=== PATIENT | male | born 1960 | race Native Hawaiian/Other Pacific Islander ===

== ENCOUNTER 2019-03-20 08:11 | Day surgery (SDC) | payer OTHER ==
[2019-03-18 16:08] VITALS: BMI 22.4
[~2019-03-20 08:11] MED LIST: LACTATED RINGERS 1,000 ML IV SCH; LIDOCAINE 1% 20 ML VIAL (10MG/ML) FOR IV START INTRADERMA PRN
[2019-03-20] MEDS ORDERED: LACTATED RINGERS 1,000 ML IV ONE (08:35)
[2019-03-20] MEDS ORDERED: LIDOCAINE 1% 20 ML VIAL (10MG/ML) FOR IV START INTRADERMA ONE (08:35)
[2019-03-20 08:38] VITALS: TEMP 97.5
--- NOTE | 2019-03-20 09:03 | P.GSHP ---
History of Present Illness H&P Date: 03/20/19 Chief Complaint: Colon polyp Patient on our service. 1.5 years ago the patient had a second colonoscopy to evaluate a hepatic flexure polyp. Residual tissue was seen at that time and removed in one piece using the snare technique. Patient doing well otherwise. Past Medical History Past Medical History: Hyperlipidemia Additional Past Medical History / Comment(s): hx of colon polyps History of Any Multi-Drug Resistant Organisms: None Reported Past Surgical History: Orthopedic Surgery Additional Past Surgical History / Comment(s): 2004 & 02/2015 right knee sx, right trigger finger, 1977 broken jaw, colonoscopy Past Anesthesia/Blood Transfusion Reactions: No Reported Reaction Smoking Status: Never smoker - Past Family History Mother Family Medical History: Chest Pain / Angina, Coronary Artery Disease (CAD), Hypertension, Myocardial Infarction ([place]) Father Family Medical History: Chest Pain / Angina, Coronary Artery Disease (CAD), Hypertension, Myocardial Infarction ([place]) Medications and Allergies Home Medications Medication Instructions Recorded Confirmed Type Hydrocodone/Acetaminophen 1 tab PO Q6HR PRN 01/11/16 03/20/19 History [Hydrocodon-Acetaminoph 7.5-325] Ibuprofen [Motrin] 800 mg PO QID PRN 01/11/16 03/18/19 History Pravastatin Sodium [Pravachol] 10 mg PO HS 01/11/16 03/20/19 History Allergies Allergy/AdvReac Type Severity Reaction Status Date / Time No Known Allergies Allergy Verified 03/20/19 08:49 Surgical - Exam Vital Signs Temp Pulse Resp BP Pulse Ox 97.5 F L 78 16 154/81 98 03/20/19 08:36 03/20/19 08:36 03/20/19 08:36 03/20/19 08:36 03/20/19 08:36 Physical exam: General: Well-developed, well-nourished HEENT: Normocephalic, sclerae nonicteric Abdomen: Nontender, nondistended Extremities: No edema Neuro: Alert and oriented Assessment and Plan (1) Colon polyp Narrative/Plan: Will proceed with follow-up colonoscopy at this time. Current Visit: Yes Status: Acute Code(s): K63.5 - POLYP OF COLON SNOMED Code(s): 33357401
[2019-03-20] MEDS ORDERED: PROPOFOL 10 MG/ML 20 ML VIAL IV ONE (09:09)
--- NOTE | 2019-03-20 09:26 | P.PCN ---
Date of Procedure: 03/20/19 Procedure(s) Performed: PREOPERATIVE DIAGNOSIS: History of hepatic flexure polyp POSTOPERATIVE DIAGNOSIS: Scar tissue remains at site of previous hepatic flexure polyp PROCEDURE: Colonoscopy with biopsy ANESTHESIA: MAC SURGEON: Adi Horvath M.D. SPECIMENS: Hepatic flexure polyp ENDOSCOPIC PROCEDURE: The patient was placed on the endoscopy table in the left decubitus position. The Olympus colonoscope was inserted into the anus and passed under direct visualization to the base of the cecum. The appendiceal orifice was visualized. From that point the scope was slowly withdrawn inspecting all surfaces carefully. There were no neoplastic inflammatory or polypoid lesions throughout the cecum or ascending colon. At the hepatic flexure the previously identified polyp site was identified. There was a scar there present. It was difficult to say whether there was residual adenomatous tissue. Several biopsies of that area took place using the cold biopsy forceps. This area measured approximately 1.5 x 0.5 cm. The remainder of the transverse descending sigmoid and rectum appeared normal. There was no visible diverticulosis. Digital rectal examination was normal. The patient was taken to the recovery room in stable condition per anesthesia guidelines. RECOMMENDATIONS: Await biopsy results. If residual polypoid tissue present will require short-term follow-up.
[2019-03-20 09:58] VITALS: BP 107/75; PULSE 65; RESP 18
== END 2019-03-20 10:05 | disposition home or self-care (01) ==
LOC: ORWHC2ENDO 08:11
PROVIDERS: ATTEND Surgery
DX: Z09 Encounter for follow-up examination after completed treatment for conditions other than malignant neoplasm (principal); Z86.010 Personal history of colon polyps; E78.5 Hyperlipidemia, unspecified; Z79.899 Other long term (current) drug therapy
CPT/HCPCS: 88305; 45380; J2704

== ENCOUNTER 2019-12-21 08:15 | Day surgery (SDC) | payer OTHER ==
[2019-12-17 12:11] VITALS: BMI 22.4
[~2019-12-21 08:15] MED LIST changes: +DEXAMETHASONE SOD PHOSPHATE 10 MG/ML 1 ML VIAL IV ONE; +HEPARIN SODIUM,PORCINE 5,000 UNIT/ML 1 ML VIAL SQ ONE; +HYDROmorphone 0.5 MG/0.5 ML SYRINGE IVP PRN; -LIDOCAINE 1% 20 ML VIAL (10MG/ML) FOR IV START INTRADERMA PRN; +MIDAZOLAM 2 MG/2 ML VIAL IV PRN; +ONDANSETRON 4 MG/2 ML VIAL IVP ONE; +Pre Op ABX Message 1 EACH MISC MISCELLANE ONE; +SCOPOLAMINE 1.5MG/72HR PATCH TRANSDERM ONE
[2019-12-21 08:36] VITALS: RESP 16; TEMP 97.3
[2019-12-21] MEDS ORDERED: LIDOCAINE 1% (10MG/ML) FOR IV START INTRADERMA ONE (08:37)
--- NOTE | 2019-12-21 08:38 | P.GSHP ---
History of Present Illness H&P Date: 12/21/19 Chief Complaint: Right posterior shoulder sebaceous cyst This a 59-year-old male who presents today for excision of a sebaceous cyst right posterior shoulder. Patient developed a 5 cm mass located of his right posterior shoulder. Past Medical History Past Medical History: Hyperlipidemia Additional Past Medical History / Comment(s): hx of colon polyps, hx back pain History of Any Multi-Drug Resistant Organisms: None Reported Past Surgical History: Orthopedic Surgery Additional Past Surgical History / Comment(s): 2004 & 02/2015 right knee sx, right trigger finger, 1977 broken jaw, colonoscopy, epidural pain injections to back Past Anesthesia/Blood Transfusion Reactions: No Reported Reaction Smoking Status: Never smoker - Past Family History Mother Family Medical History: Chest Pain / Angina, Coronary Artery Disease (CAD), Hypertension, Myocardial Infarction ([place]) Father Family Medical History: Chest Pain / Angina, Coronary Artery Disease (CAD), Hypertension, Myocardial Infarction ([place]) Medications and Allergies Home Medications Medication Instructions Recorded Confirmed Type Hydrocodone/Acetaminophen 1 tab PO Q6HR PRN 01/11/16 12/21/19 History [Hydrocodon-Acetaminoph 7.5-325] Ibuprofen [Motrin] 800 mg PO QID PRN 01/11/16 12/21/19 History Pravastatin Sodium [Pravachol] 10 mg PO HS 01/11/16 12/21/19 History Allergies Allergy/AdvReac Type Severity Reaction Status Date / Time No Known Allergies Allergy Verified 12/21/19 08:33 Surgical - Exam Vital Signs Temp Pulse Resp BP Pulse Ox 97.3 F L 68 16 144/63 99 12/21/19 08:34 12/21/19 08:34 12/21/19 08:34 12/21/19 08:34 12/21/19 08:34 - General well developed, well nourished, no distress - Eyes PERRL - ENT normal pinna - Respiratory normal expansion - Cardiovascular Rhythm: regular - Abdomen Abdomen: soft, non tender - Integumentary 5 cm mass over left posterior shoulder Assessment and Plan Assessment: Right posterior shoulder sebaceous cyst. We'll perform excision.
[2019-12-21] MEDS ORDERED: MIDAZOLAM 2 MG/2 ML VIAL ONE (08:49)
[2019-12-21] MEDS ORDERED: LIDOCAINE 1% INJ 10MG/ML (20 ML MDV) ONE (08:49)
[2019-12-21] MEDS ORDERED: fentaNYL (PF) 50 MCG/ML 2 ML AMP ONE (08:49)
[2019-12-21] MEDS ORDERED: PROPOFOL 10 MG/ML 20 ML VIAL IV ONE (08:49)
[2019-12-21] MEDS ORDERED: BUPIVACAINE (PF) 0.25% 30 ML VIAL SQ ONE (09:03)
[2019-12-21] MEDS ORDERED: SODIUM CHLORIDE 0.9% 50 ML with ceFAZolin 2,000 MG IV ONE ×2 (09:05)
[2019-12-21 10:04] VITALS: BP 121/70; PULSE 61
--- NOTE | 2020-01-11 15:14 | P.OP ---
Date of Procedure: 12/21/19 Preoperative Diagnosis: Sebaceous Cyst right posterior shoulder Postoperative Diagnosis: Sebaceous cyst right posterior shoulder Procedure(s) Performed: Excision of sebaceous cyst of right posterior shoulder Anesthesia: DONA Surgeon: Abhishek Miller Pathology: other (Sebaceous cyst) Condition: stable Disposition: PACU Description of Procedure: The patient's placed the operative table in the lateral position and his right shoulder was prepped in usual fashion. The skin was then 1% local Xylocaine. Using a 15 blade skin incised and using blunt and sharp dissection with cautery the sebaceous cyst excised. The skin was then closed with 3-0 nylon suture. Patient top she will was sent to recovery in stable condition.
== END 2019-12-21 10:30 | disposition home or self-care (01) ==
LOC: OR 08:15
PROVIDERS: ATTEND Surgery
DX: L72.0 Epidermal cyst (principal); E78.5 Hyperlipidemia, unspecified; Z86.010 Personal history of colon polyps; Z79.899 Other long term (current) drug therapy; Z98.890 Other specified postprocedural states; Z82.49 Family history of ischemic heart disease and other diseases of the circulatory system
CPT/HCPCS: 88304; 11406; J2250; J1644; J1100; J2405; J0690; J2001; J3010; J2704

== ENCOUNTER 2021-02-10 07:32 | Day surgery (SDC) | payer OTHER ==
[2021-02-08 09:58] VITALS: BMI 21.6
[~2021-02-10 07:32] MED LIST changes: -DEXAMETHASONE SOD PHOSPHATE 10 MG/ML 1 ML VIAL IV ONE; -HEPARIN SODIUM,PORCINE 5,000 UNIT/ML 1 ML VIAL SQ ONE; -HYDROmorphone 0.5 MG/0.5 ML SYRINGE IVP PRN; -MIDAZOLAM 2 MG/2 ML VIAL IV PRN; -ONDANSETRON 4 MG/2 ML VIAL IVP ONE; -Pre Op ABX Message 1 EACH MISC MISCELLANE ONE; -SCOPOLAMINE 1.5MG/72HR PATCH TRANSDERM ONE
[2021-02-10 08:23] VITALS: RESP 16; TEMP 97.8
[2021-02-10] MEDS ORDERED: PROPOFOL 10 MG/ML 20 ML VIAL IV ONE (08:53)
--- NOTE | 2021-02-10 08:56 | P.GSHP ---
History of Present Illness H&P Date: 02/10/21 Chief Complaint: Anemia Is a 60-year-old male being worked up for anemia. Patient is today for colonoscopy. He denies any obvious rectal bleeding. Past Medical History Past Medical History: Hyperlipidemia Additional Past Medical History / Comment(s): hx of colon polyps, back pain History of Any Multi-Drug Resistant Organisms: None Reported Past Surgical History: Orthopedic Surgery Additional Past Surgical History / Comment(s): 2004 & 02/2015 right knee sx, right trigger finger, 1977 broken jaw, colonoscopy, epidural pain injections to back Past Anesthesia/Blood Transfusion Reactions: No Reported Reaction Smoking Status: Never smoker - Past Family History Mother Family Medical History: Chest Pain / Angina, Coronary Artery Disease (CAD), Hypertension, Myocardial Infarction ([place]) Father Family Medical History: Chest Pain / Angina, Coronary Artery Disease (CAD), Hypertension, Myocardial Infarction ([place]) Medications and Allergies Home Medications Medication Instructions Recorded Confirmed Type Hydrocodone/Acetaminophen 1 tab PO Q6HR PRN 01/11/16 02/10/21 History [Hydrocodon-Acetaminoph 7.5-325] Ibuprofen [Motrin] 800 mg PO QID PRN 01/11/16 02/10/21 History Pravastatin Sodium [Pravachol] 10 mg PO HS 01/11/16 02/10/21 History Allergies Allergy/AdvReac Type Severity Reaction Status Date / Time No Known Allergies Allergy Verified 02/10/21 08:23 Surgical - Exam Vital Signs Temp Pulse Resp BP Pulse Ox 97.8 F 74 16 119/67 98 02/10/21 08:00 02/10/21 08:00 02/10/21 08:00 02/10/21 08:00 02/10/21 08:00 - General well developed, well nourished, no distress - Eyes PERRL - ENT normal pinna - Neck no masses - Respiratory normal expansion - Cardiovascular Rhythm: regular - Abdomen Abdomen: soft, non tender Assessment and Plan Assessment: History We'll perform colonoscopy.
--- NOTE | 2021-02-10 09:07 | P.OP ---
Date of Procedure: 02/10/21 Preoperative Diagnosis: Anemia History of colon polyps Postoperative Diagnosis: Possible proctitis pathology pending Procedure(s) Performed: Colonoscopy Anesthesia: MAC Surgeon: Abhishek Miller Pathology: other (Rectum) Condition: stable Disposition: PACU Description of Procedure: The patient's placed on the endoscopy table in the lateral position. She received IV sedation. Digital rectal exam was performed which revealed no abnormalities. The prostate was symmetric without nodules. The colonoscope was then placed patient anus passed throughout the entire colon. The ileocecal valve was visually's. The cecum, ascending and transverse colon appeared normal. The descending and sigmoid colon appeared normal. The scope was brought back the rectum and there was some inflammatory changes mucosa. This was biopsied. Scope was then withdrawn for patient. Patient tolerated the procedure well.
[2021-02-10 09:25] VITALS: BP 134/82; PULSE 58
== END 2021-02-10 10:06 | disposition home or self-care (01) ==
LOC: ORWHC2ENDO 07:32
PROVIDERS: ATTEND Surgery
DX: K62.3 Rectal prolapse (principal); E78.5 Hyperlipidemia, unspecified; D64.9 Anemia, unspecified; Z86.010 Personal history of colon polyps; M54.9 Dorsalgia, unspecified; Z98.890 Other specified postprocedural states; Z82.49 Family history of ischemic heart disease and other diseases of the circulatory system; Z79.899 Other long term (current) drug therapy
CPT/HCPCS: 88305; 45380; J2704

== ENCOUNTER → 2022-04-20 | Outpatient (CLI) | payer OTHER ==
--- NOTE | 2022-04-20 08:57 | US ---
EXAMINATION TYPE: US abdomen complete DATE OF EXAM: 04/20/2022 COMPARISON: NONE CLINICAL HISTORY: D50.9 IRON DEFICIENCY ANEMIA, UNSPECIFIED. Anemia EXAM MEASUREMENTS: Liver Length: 14.4 cm Gallbladder Wall: 0.21 cm CBD: 0.41 cm Spleen: 10.0 cm Right Kidney: 9.7 x 5.2 x 3.9 cm Left Kidney: 9.8 x 4.9 x 5.6 cm Pancreas: Obscured by bowel gas Liver: wnl Gallbladder: Multiple mobile stones seen. Largest = 1.1 x 0.8 x 0.8 cm Evidence for sonographic Rivas's sign: No CBD: wnl Spleen: wnl Right Kidney: wnl Left Kidney: wnl Upper IVC: wnl Abd Aorta: wnl IMPRESSION: 1. Cholelithiasis.
== END | disposition home or self-care (01) ==
LOC: RADUSWWP 08:05
PROVIDERS: ATTEND Family Medicine
DX: D50.9 Iron deficiency anemia, unspecified (principal)
CPT/HCPCS: 76700

== ENCOUNTER 2024-01-23 10:00 | Day surgery (SDC) | payer MEDICARE, OTHER ==
[2024-01-21 11:10] VITALS: BMI 23.3
--- NOTE | 2024-01-23 07:31 | P.GSHP ---
History of Present Illness H&P Date: 01/23/24 CHIEF COMPLAINT: GERD and colon screen HISTORY OF PRESENT ILLNESS: The patient is a 63-year-old male who presents with gastroesophageal reflux disease and need for colon screen. Upper and lower endoscopy were offered for further evaluation and management. PAST MEDICAL HISTORY: Please see list. PAST SURGICAL HISTORY: Please see list. MEDICATIONS: Please see list. ALLERGIES: Please see list. SOCIAL HISTORY: No illicit drug use FAMILY HISTORY: No reports of Crohn disease or ulcerative colitis. REVIEW OF ORGAN SYSTEMS: CONSTITUTIONAL: No reports of fevers or chills. GI: Denies any blood in stools or constipation. PHYSICAL EXAM: VITAL SIGNS: Stable GENERAL: Well-developed pleasant in no acute distress. HEENT: No scleral icterus. Extraocular movements grossly intact. Moist buccal mucosa. NECK: Supple without lymphadenopathy. CHEST: Unlabored respirations. Equal bilateral excursions. CARDIOVASCULAR: Regular rate and rhythm. Distal 2+ pulses. ABDOMEN: Soft, nondistended. MUSCULOSKELETAL: No clubbing, cyanosis, or edema. ASSESSMENT: 1. Gastroesophageal reflux disease 2. Colon screen. PLAN: 1. Recommend proceeding with an upper and lower endoscopy Past Medical History Past Medical History: Hyperlipidemia Additional Past Medical History / Comment(s): hx of colon polyps, back pain History of Any Multi-Drug Resistant Organisms: None Reported Past Surgical History: Orthopedic Surgery Additional Past Surgical History / Comment(s): 2004 & 02/2015 right knee sx, right trigger finger, 1977 broken jaw, colonoscopy, epidural pain injections to back Past Anesthesia/Blood Transfusion Reactions: No Reported Reaction Additional Past Anesthesia/Blood Transfusion Reaction / Comment(s): No hx of blood transfusions. Smoking Status: Never smoker - Past Family History Mother Family Medical History: Chest Pain / Angina, Coronary Artery Disease (CAD), Hypertension, Myocardial Infarction ([place]) Father Family Medical History: Chest Pain / Angina, Coronary Artery Disease (CAD), Hypertension, Myocardial Infarction ([place]) Medications and Allergies Home Medications Medication Instructions Recorded Confirmed Type Hydrocodone/Acetaminophen 1 tab PO Q6HR PRN 01/11/16 01/21/24 History [Hydrocodon-Acetaminoph 7.5-325] Ibuprofen [Motrin] 800 mg PO QID PRN 01/11/16 01/21/24 History Pravastatin Sodium [Pravachol] 10 mg PO HS 01/11/16 01/21/24 History Allergies Allergy/AdvReac Type Severity Reaction Status Date / Time No Known Allergies Allergy Verified 01/21/24 10:43
[~2024-01-23 10:00] MED LIST changes: -LACTATED RINGERS 1,000 ML IV SCH; +LIDOCAINE 1% (10MG/ML) FOR IV START INTRADERMA PRN
[2024-01-23] MEDS: LACTATED RINGERS 1,000 ML IV SCH (10:37)
[2024-01-23 11:09] VITALS: TEMP 97.2
[2024-01-23] MEDS ORDERED: LIDOCAINE 2% (PF) 20 MG/ML 5 ML VIAL ONE (11:40)
[2024-01-23] MEDS ORDERED: fentaNYL (PF) 50 MCG/ML 2 ML AMP ONE (11:40)
[2024-01-23] MEDS ORDERED: PROPOFOL 10 MG/ML 20 ML VIAL IV ONE (11:40)
--- NOTE | 2024-01-23 11:57 | P.PCN ---
Date of Procedure: 01/23/24 Description of Procedure: PREOPERATIVE DIAGNOSIS: GI bleed POSTOPERATIVE DIAGNOSIS: Diaphragmatic hiatal hernia Gastritis OPERATION: Esophagogastroduodenoscopy with biopsies along esophagus, antrum and duodenum SURGEON: Magdalena Murray MD ANESTHESIA: MAC. INDICATIONS: The patient is a 63-year-old male who presents with GI bleed. Benefits and risks of the procedure were described. Informed consent was obtained. DESCRIPTION: The patient was brought into the endoscopy suite and laid in the left lateral decubitus position. An Olympus gastroscope was passed along the posterior oropharynx down to the distal esophagus where the squamocolumnar junction was encountered at 37 cm from the incisors. The stomach was entered and no bile reflux was found. Additional findings are listed below. Biopsies with cold forceps were obtained of the antrum. The first through third portion of the duodenum was examined. Retroflexion of the scope confirmed Hill grade 3 lower esophageal valve. The squamocolumnar junction demonstrated LA grade B erosive esophagitis. The stomach was desufflated. The patient tolerated the procedure well. FINDINGS: Squamocolumnar junction 37 cm from the incisors. Diaphragmatic hiatus at 38 cm. Hiatal hernia, 1 cm Hill grade 3 lower esophageal valve. LA grade B erosive esophagitis. Biopsies obtained Biopsies obtained of the duodenum. Chronic gastritis with biopsies obtained. RECOMMENDATIONS: Upper endoscopy as needed.
--- NOTE | 2024-01-23 12:50 | P.PCN ---
Date of Procedure: 01/23/24 Description of Procedure: PREOPERATIVE DIAGNOSIS: Abnormal stool test Colonoscopy screening POSTOPERATIVE DIAGNOSIS: Colonoscopy screening OPERATION: Colonoscopy to the cecum, ileocecal valve and appendiceal orifice. SURGEON: Magdalena Murray MD. ANESTHESIA: MAC. INDICATIONS: The patient is a 63-year-old male who presents for colonoscopy screening. Last colonoscopy over 10 years ago. Benefits and risks were described and informed consent was obtained. DESCRIPTION OF PROCEDURE: The patient had undergone GoLytely prep. The patient had been brought into the operating room and laid in the left lateral decubitus position. After adequate intravenous sedation, the rectum was examined with 2% lidocaine jelly. No external hemorrhoids were encountered. The rectal tone was within normal limits. No lesions were palpated in the rectal vault. An Olympus colonoscope was advanced until the cecum, ileocecal valve and appendiceal orifice were clearly viewed. The prep was excellent. No scattered diverticulosis was encountered. No colonic polyps were found. No evidence of focal colitis was found. Retroflexion of the scope demonstrated grade 1 internal hemorrhoids without active bleeding or inflammation. The colon was desufflated. The patient had tolerated the procedure well. Withdrawal time was over 6 minutes. FINDINGS: Aronchick preparation quality scale 1 (1-5) Internal hemorrhoids, grade 1 No external prolapsed hemorrhoids. No arteriovenous malformations. No adenomatous polyps. No focal colitis. No sigmoid diverticulosis No stigmata of bleeding RECOMMENDATIONS: Lower in 5 years, 2028 Plan - Discharge Summary Discharge Rx Participant: No New Discharge Prescriptions: Continue Hydrocodone/Acetaminophen [Hydrocodone/Acetaminophen 7.5-325] 1 tab PO Q6HR PRN PRN Reason: Pain Pravastatin Sodium [Pravachol] 10 mg PO HS Discontinued Ibuprofen [Motrin] 800 mg PO QID PRN PRN Reason: Pain Discharge Medication List Hydrocodone/Acetaminophen [Hydrocodone/Acetaminophen 7.5-325] 1 tab PO Q6HR PRN 01/11/16 [History] Pravastatin Sodium [Pravachol] 10 mg PO HS 01/11/16 [History] Follow up Appointment(s)/Referral(s): Magdalena Murray MD [STAFF PHYSICIAN] - 02/18/24 1:45 pm Patient Instructions/Handouts: *Surgery [facility] - (Anesthesia) Discharge Instructions Outpatient Surgery, Hiatal Hernia ([place]) Activity/Diet/Wound Care/Special Instructions: Repeat colonoscopy 5 years, 2028 Discharge Disposition: HOME SELF-CARE
[2024-01-23 12:54] VITALS: BP 116/71; PULSE 76; RESP 20
== END 2024-01-23 12:56 | disposition home or self-care (01) ==
LOC: ORWHC2ENDO 10:00
PROVIDERS: ATTEND Surgery Plastic and Reconstructive Surgery
DX: K29.50 Unspecified chronic gastritis without bleeding (principal); K21.00 Gastro-esophageal reflux disease with esophagitis, without bleeding; K44.9 Diaphragmatic hernia without obstruction or gangrene; K31.A0 Gastric intestinal metaplasia, unspecified; E78.5 Hyperlipidemia, unspecified; Z79.899 Other long term (current) drug therapy
CPT/HCPCS: 88305; 88342; 45378; 43239; J3010; J2704; J2001